=== PATIENT | male | born 1985 | race Hispanic/Latino ===

== ENCOUNTER → 2019-04-18 | Outpatient (CLI) | payer BC | END | disposition home or self-care (01) | LOC: SHCH 08:30 | PROVIDERS: ATTEND Internal Medicine Cardiovascular Disease | DX: I51.7 Cardiomegaly (principal) | CPT/HCPCS: 93306 ==

== ENCOUNTER 2025-01-27 16:11 | Emergency (ER) | payer SELFPAY ==
[~2025-01-27] VITALS: Ht 172.7 cm; Wt 117.0 kg
[2025-01-27 17:04] LABS: IMMATURE GRANULOCYTE ABSOLUTE 0.12 K/uL (0-1); NUCLEATED RED BLOOD CELLS 0.0 % (0.0-0.19); PLATELET COUNT (AUTO) 423 K/uL (130-400); RED BLOOD CELL COUNT(AUTO) 5.75 MIL/uL (4.50-6.20); RED CELL DISTRIBUTION WIDTH 13.1 % (11.0-15.5); WHITE BLOOD COUNT (AUTO) 18.3 K/uL (4.8-10.8)
[2025-01-27 17:13] LABS: CREATININE 0.8 mg/dL (0.5-1.3); GLOMERULAR FILTR. RATE CALC 117.0 mL/min (>90); GLUCOSE,RANDOM 97.0 mg/dL (70-105); SODIUM SERUM 138.0 mmol/L (136-145); UREA NITROGEN, BLOOD 8.0 mg/dL (7-18)
[2025-01-27] MEDS: 0.9%NACL 1000ML 1,000 ML IV ONE (17:32)
--- NOTE | 2025-01-27 18:22 | EKG ---
[facility] Test Date: 2025-01-27 Test Time: 16:54:36 Pat Name: ALYSSA MARK Department: ED Room: Gender: M Workshop Manager: [id number] : 1985 Requested By: BOZENA LEBRON Order Number: [id number] Reading MD: Nathan Acosta Measurements Intervals [place] Rate: 105 P: 7 KS: 171 QRS: 72 QRSD: 86 T: -1 QT: 322 QTc: 427 Interpretive Statements Sinus tachycardia No previous ECG available for comparison Electronically Signed On 01-28-2025 21:49:59 [employer] [employer] REPL[employer] by Nathan Acosta Please click the below link to view image of tracing.
[2025-01-27 18:24] VITALS: BP 121/79; PULSE 70; RESP 16; TEMP 98.2; O2SAT 99
--- NOTE | 2025-01-27 18:54 | HMCIMG ---
EXAM: CR Chest, 1 View. CLINICAL HISTORY: syncope COMPARISON: None provided. FINDINGS: LUNGS: There is no mass, infiltrate, or acute pulmonary abnormality. PLEURAL SPACES: No evidence of pleural effusion or pneumothorax. MEDIASTINUM: Cardiac size and mediastinal contours within normal limits. BONES: No acute osseous abnormality. IMPRESSION: No acute cardiopulmonary pathology is evident. /[place]
[2025-01-27 19:51] LABS: APPEARANCE,URINE CLEAR (CLEAR); GLUCOSE, URINE (UA) NEGATIVE (NEGATIVE); LEUKOCYTE ESTERASE ,URINE NEGATIVE Leu/uL (NEGATIVE); NITRATE,URINE NEGATIVE (NEGATIVE); OCCULT BLOOD,URINE NEGATIVE (NEGATIVE)
[2025-01-27 19:54] LABS: AMPHET/METH SCREEN,URINE NEGATIVE (NEGATIVE); BARBITURATE SCREEN, URINE NEGATIVE (NEGATIVE); CANNABINOID SCREEN,URINE NEGATIVE (NEGATIVE); COCAINE SCREEN,URINE NEGATIVE (NEGATIVE)
[2025-01-27 20:00] LABS: ADD UA MICROSCOPIC NO
[2025-01-27] MEDS ORDERED: CLIN-141 PO (20:33)
--- NOTE | 2025-01-27 20:34 | ERN ---
ED Note History of Present Illness Stated Complaint: SYNCOPE Chief Complaint: Syncope Time Seen by MD: 16:20 Time Seen by Midlevel: 16:20 Dictation: The patient is a 39-year-old male with no past medical history who presents to the emergency department with syncopal episode and dizziness onset an hour prior to arrival. Patient reports that at 11:00 a.m. he donated plasma and he went home. Reports he did not eat or drink anything afterwards. Reports patient got up to go to the Fridge and he felt dizzy causing him to pass out. Patient denies any headache, denies any nausea or vomiting, denies any neck pain, denies any injury from the fall. Patient denies any fevers or recent illness. Denies any abdominal pain, nausea vomiting or diarrhea. Allergies: Coded Allergies: Penicillins (Unverified Allergy, Unknown, 01/27/25) Past Medical History Past Medical History: No Pertinent History Surgical History: None RN Note Reviewed/Agreed w/PFSH: Yes Review of System Dictation Constitutional: Negative for fever,chills, and weight loss Eyes: Negative for injury, pain,redness, and discharge ENT: Negative for injury,pain or swelling Cardiovascular: Negative for chest pain, palpitations, and edema Respiratory: Negative for shortness of breath, cough, and wheezing, Abdomen/GI: Negative for abdominal pain, nausea, vomiting, diarrhea, and constipation Back: Negative for injury and pain : Negative for injury, bleeding and discharge MS/Extremity: Negative for injury and deformity Skin: Negative for rash, and discoloration positive for laceration Neuro: Negative for headache, weakness, numbness, tingling, and seizure positive for syncope Psych: Negative for suicide ideation, homicidal ideation, and hallucinations Initial Vital Sign VS Vital Signs Date Time Temp Pulse Resp B/P (MAP) Pulse Ox O2 Delivery O2 Flow Rate FiO2 01/27/25 16:17 98.2 97 19 101/63 95 Room Air 0 01/27/25 18:24 21 Physical Exam Dictation Vital Signs reviewed General Appearance: Alert, oriented x 3, no acute distress, well developed, nourished. Head and Face: non-traumatic. Eyes: PERRL, pink conjunctivas, eyelid no trauma, anterior chamber with arcus senilis. Ears: Pinnas intact and no signs of trauma or erythema ear canals clear and no discharge TM no erythema Nose: No discharge, no bleeding. Oropharynx: Mouth normal, tongue pink. pharynx clear,no erythema, tonsils no exudates, no abscesses noted, mucous membrane moist Neck: Supple, non-tender, no thyromegaly, no masses, no JVD, no bruits Breast:Deferred Chest:No tenderness, no crepitus, no paradoxical movement, no retractions Lungs:Clear, well-ventilated, symmetric, no rales, no wheezing, no rhonchi, no stridor, good breath sounds bilaterally Heart: Regular rate, regular rhythm, no murmur, no gallops Vascular: no peripheral edema, Abdomen: Soft, positive bowel sounds, nondistended, no guarding, nontender, no rebound, no masses no hepatomegaly, no splenomegaly, no Mak's sign, no hernias. Rectal: Deferred Genital: Deferred Neurological: Normal speech, motor function intact, sensory function intact , upper extremities equal in strength, lower extremities equal in strength, no facial droop, no slurred speech Musculoskeletal: Neck nontender, full range of motion, back nontender, full range of motion, Extremities: nontender, full range of motion Skin: Color pink, dry, no turgor, no rash, no abrasions, no contusions. 2 cm laceration to right outer lower leg, no drainage, no erythema Lymphatic: Deferred Results (Laboratory/Radiology) Laboratory/Radiology Laboratory Tests Test 01/27/25 16:58 01/27/25 19:20 White Blood Count 18.3 K/uL (4.8-10.8) H Red Blood Count 5.75 MIL/uL (4.50-6.20) Hemoglobin 17.4 g/dL (14.0-18.0) Hematocrit 51.3 % (42-54) Mean Corpuscular Volume 89.2 fL (79-99) Mean Corpuscular Hemoglobin 30.3 pg (27.0-33.0) Mean Corpuscular Hemoglobin Concent 33.9 g/dL (32.0-36.0) Red Cell Distribution Width 13.1 % (11.0-15.5) Platelet Count 423 K/uL (130-400) H Mean Platelet Volume 9.5 fL (7.5-10.5) Immature Granulocyte % (Auto) 0.7 % (0-1) Neutrophils (%) (Auto) 81.3 % (40.0-77.0) H Lymphocytes (%) (Auto) 8.7 % (21.0-51.0) L Monocytes (%) (Auto) 7.6 % (3.0-13.0) Eosinophils (%) (Auto) 1.3 % (0.0-8.0) Basophils (%) (Auto) 0.4 % (0.0-5.0) Neutrophils # (Auto) 14.9 K/uL (1.8-7.7) H Lymphocytes # (Auto) 1.6 K/uL (1.0-4.8) Monocytes # (Auto) 1.4 K/uL (0.1-1.0) H Eosinophils # (Auto) 0.24 K/uL (0.00-0.70) Basophils # (Auto) 0.07 K/uL (0.00-0.20) Absolute Immature Granulocyte (auto 0.12 K/uL (0-1) Nucleated Red Blood Cells 0.0 % (0.0-0.19) White Cell Morphology Comment See comments Sodium Level 138 mmol/L (136-145) Potassium Level 4.2 mmol/L (3.5-5.1) Chloride Level 107 mmol/L (101-111) Carbon Dioxide Level 28 mmol/L (21-32) Blood Urea Nitrogen 8 mg/dL (7-18) Creatinine 0.8 mg/dL (0.5-1.3) Glomerular Filtration Rate Calc 117 mL/min (>90) Random Glucose 97 mg/dL (70-105) Total Calcium 7.8 mg/dL (8.5-10.1) L Troponin I High Sensitivity 4 ng/L (4-75) Urine Color LIGHT-YELLOW (YELLOW) Urine Appearance CLEAR (CLEAR) Urine pH 6.5 (5.0-8.0) Urine Specific [place] 1.015 (1.001-1.031) Urine Protein NEGATIVE mg/dL (NEGATIVE) Urine Glucose (UA) NEGATIVE mg/dL (NEGATIVE) Urine Ketones NEGATIVE mg/dL (NEGATIVE) Urine Occult Blood NEGATIVE (NEGATIVE) Urine Nitrate NEGATIVE (NEGATIVE) Urine Bilirubin NEGATIVE mg/dL (NEGATIVE) Urine Urobilinogen 0.2 mg/dL (0.2-1.0) Urine Leukocyte Esterase NEGATIVE Eddie/uL Urine Opiates Screen NEGATIVE (NEGATIVE) Urine Barbiturates Screen NEGATIVE (NEGATIVE) Urine Phencyclidine Screen NEGATIVE (NEGATIVE) Urine Amphetamines Screen NEGATIVE (NEGATIVE) Urine Benzodiazepines Screen NEGATIVE (NEGATIVE) Urine Cocaine Screen NEGATIVE (NEGATIVE) Urine Marijuana (THC) Screen NEGATIVE (NEGATIVE) Labs Reviewed?: Yes EKG: (+) rhythm EKG Comment: Date:01/27/2025 Time:1654 Ventricular rate:105 [place] interval:171 QRS duration:86 QT/QTc:322/427 EKG interpretation: Sinus tachycardia Reviewed by ED Attending no STEMI ED Course ED Course Orders Procedure Category Date Status Time Cbc With Differential LAB 01/27/25 Complete 16:50 Chest 1vw RAD 01/27/25 Resulted 16:50 12 Lead Ekg Tracing- EKG 01/27/25 Complete Technical 16:50 0.9%Nacl 1000ml (Ns PHA 01/27/25 Complete 1000ml) 17:00 Troponin I High LAB 01/27/25 Complete Sensitivity 16:50 Basic Metabolic Panel LAB 01/27/25 Complete 16:50 Urinalysis Profile LAB 01/27/25 Complete 19:12 Drug Screen Urine LAB 01/27/25 Complete 19:12 Tetanus,Diphtheria PHA 01/27/25 Complete Tox [Adult] (Diphther 20:00 Ceftriaxone 1g Vial PHA 01/27/25 Complete (Rocephine 1g Inj) 20:00 Current Medications Medications (Trade) Dose Ordered Sig/Candy Route PRN Reason Start Time Stop Time Status Last Admin Dose Admin Ceftriaxone Sodium (ROCEphine 1G INJ) 1 gm ONCE ONCE IM 01/27/25 20:00 01/27/25 20:01 DC 01/27/25 20:14 Sodium Chloride 1,000 ml @ 0 mls/hr ONCE ONCE IV 01/27/25 17:00 01/27/25 17:01 DC 01/27/25 17:32 Tetanus/ Diphtheria Toxoids Adsorbed (DiphthERIA-teTANUS TOXOID [ADULT]/ DECAVAC) 0.5 ml ONCE ONCE IM 01/27/25 20:00 01/27/25 20:01 DC 01/27/25 20:15 Vital Signs Date Time Temp Pulse Resp B/P (MAP) Pulse Ox O2 Delivery O2 Flow Rate FiO2 01/27/25 18:24 98.2 70 16 121/79 99 Room Air* 0 21 01/27/25 16:17 98.2 97 19 101/63 95 Room Air 0 Medical Decision Making MDM The patient is a 39-year-old male with no past medical history who presents to the emergency department with syncopal episode and dizziness onset an hour prior to arrival. Patient reports that at 11:00 a.m. he donated plasma and he went home. Reports he did not eat or drink anything afterwards. Reports patient got up to go to the Fridge and he felt dizzy causing him to pass out. Patient denies any headache, denies any nausea or vomiting, denies any neck pain, denies any injury from the fall. Patient denies any fevers or recent illness. Denies any abdominal pain, nausea vomiting or diarrhea. CBC showed leukocytosis, no anemia, chemistry showed no electrolyte imbalance, normal renal function, negative troponin, chest x-ray showed no acute pathology. Urinalysis was unremarkable. Patient with some leukocytosis but no obvious source of infection. Patient with no abdominal pain, no nausea or vomiting, no diarrhea, no urinary discomfort. Patient did however mention that he cut his right lower leg with a two. He has a small laceration to the right lower leg about 2 cm in length. We will let wound healed by secondary intention since the incident was yesterday. Wound is superficial There is no drainage no significant erythema surrounding the area. We will treat patient with antibiotics and patient was updated for tetanus. Patient otherwise neurologically intact. Reports feeling better after IV fluids. Patient is syncope likely related to blood donation. Patient low risk on [place] syncope risk score Patient will be discharged to follow up with PCP. Differential diagnosis: Dehydration, vasovagal response, tachyarrhythmia Need for hospitalization: Patient does not meet criteria for hospitalization. There are no social concerns with this patient. DX & DISP Disposition: Discharge Departure Impression: Primary Impression: Syncope Additional Impressions: Leukocytosis, Laceration of right lower extremity Condition: Stable Scripts Clindamycin HCl (Clindamycin HCl) 300 Mg Capsule 1 CAP PO QID for 5 Days, #20 CAP 0 Refills Prov: BOZENA LEBRON TILE [employer] MOTTLE SUPERVISOR 01/27/25 Additional Instructions: Please follow up with your primary doctor in 1-2 days. They will need to monitor your your WBCs to make sure there trending down. Take your antibiotics as prescribed. Continue oral hydration at home. If symptoms worsen please return to ER. FOLLOW-UP WITH PRIMARY CARE PROVIDER IN 1 TO 2 DAYS. TAKE MEDICATIONS DIRECTED HERE IN THE EMERGENCY ROOM. OKAY TO CONTINUE HOME MEDICATIONS UNLESS OTHERWISE DISCUSSED DURING YOUR VISIT IN THE EMERGENCY ROOM TODAY. RETURN TO YOUR NEAREST EMERGENCY ROOM IF SYMPTOMS WORSEN OR IF THERE IS NO IMPROVEMENT. CALL 911 IF YOU NEED IMMEDIATE ASSISTANCE. TAKE TYLENOL [id number] NEEDED AND IF NO CONTRAINDICATIONS ARE PRESENT. INCREASE ORAL HYDRATION. A WOUND CULTURE OR URINE CULTURE WAS ORDERED HERE IN THE EMERGENCY ROOM DEPARTMENT PLEASE FOLLOW-UP WITH PRIMARY CARE PROVIDER AND ADVISE THEM TO GET REPEAT PORTS FROM OUR FACILITY. IF YOU HAD ANY [place] WRAP/SPLINTS THAT WERE APPLIED HERE, PLEASE DO NOT REMOVE THEM UNTIL YOU SEE YOUR PRIMARY CARE OR SPECIALTY. Referrals: RAMANA TALAVERA DO (PCP) Time of Disposition: 20:28 I have reviewed the case, and I agree with, Diagnosis and Plan BOZENA LEBRON [employer] MOTTLE SUPERVISOR Jan 27, 2025 20:34
== END 2025-01-27 20:43 | disposition home or self-care (01) ==
LOC: EDH 16:11
DX: S81.811A Laceration without foreign body, right lower leg, initial encounter (principal); D72.829 Elevated white blood cell count, unspecified; R55 Syncope and collapse; Z88.0 Allergy status to penicillin; W18.39XA Other fall on same level, initial encounter; Y93.89 Activity, other specified; Y92.89 Other specified places as the place of occurrence of the external cause; Y99.8 Other external cause status
CPT/HCPCS: 99285; 96360; 71045; 84484; 80048; 80305; 85025; 36415; 90714; 90471; 93005; 96372; 81003; J7030; J0696